=== PATIENT | male | born 1990 | race Caucasian/White ===

== ENCOUNTER 2019-04-05 08:34 | Emergency (ER) | payer OTHER ==
[~2019-04-05] VITALS: Ht 182.9 cm; Wt 81.6 kg
[2019-04-05 11:07] VITALS: BP 125/87
[2019-04-05] MEDS ORDERED: ACETAMINOPHEN 325 MG TAB PO ONE (11:15)
== END 2019-04-05 11:52 | disposition home or self-care (01) ==
LOC: EDBD 08:34 → ER 08:34
DX: S01.01XA Laceration without foreign body of scalp, initial encounter (principal); S16.1XXA Strain of muscle, fascia and tendon at neck level, initial encounter; V43.52XA Car driver injured in collision with other type car in traffic accident, initial encounter; Y93.I9 Activity, other involving external motion; Y92.410 Unspecified street and highway as the place of occurrence of the external cause; Y99.8 Other external cause status
CPT/HCPCS: 12002; 70450; 72040